=== PATIENT | female | born 1950 | race Caucasian/White ===

== ENCOUNTER → 2021-02-01 00:58 | Outpatient (CLI) | payer BC, SELFPAY ==
[2021-02-01 21:02] LABS: SARS-CoV-2 RNA PCR Negative
== END ==
PROVIDERS: PCP Internal Medicine; Visit Provider Obstetrics & Gynecology Gynecology
DX: Z01.812 Encounter for preprocedural laboratory examination (principal); Z20.822 Contact with and (suspected) exposure to COVID-19
CPT/HCPCS: C9803; U0003; U0005

== ENCOUNTER 2021-02-04 00:32 | Day surgery (SDC) | payer BC, SELFPAY ==
[2021-01-04 15:33] VITALS: BMI 26.0
[2021-02-04] VITALS (9 sets, daily range): BP systolic 109–165; BP diastolic 51–99; PULSE 38–57; RESP 12–18; TEMP 36.1; O2SAT 94–100
--- NOTE | 2021-02-04 07:39 | WPDHPUPDATE1 ---
History and Physical Update Update Date/Time: 02/04/21 07:39 History and Physical has been reviewed, including an updated exam of the patient. There are NO changes in the patient's condition. Risks, benefits, and alternatives have been discussed and questions answered. Patient agrees to proceed with procedure.
--- NOTE | 2021-02-04 07:40 | PM.HPGS ---
History of Present Illness History of Present Illness Consent: Risks, benefits, and alternatives have been discussed and questions answered. Patient agrees to proceed with procedure. Chief complaint: post menopausal bleeding Narrative: Jania Davis is a 70 year old female with postmenopausal bleeding. Pelvic ultrasound was performed and noted to have thickened lining. Recommended to proceed with hysteroscopy. Risks of infection, bleeding, and perforation are reviewed. Possible pathology is discussed. Patient's questions are answered and she voices understanding. She agrees to proceed.Medical clearance obtained from her transplant doctor. 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 Social History Social History Smoking status: Never smoker Second hand tobacco smoke exposure: No Alcohol intake: never Substance use: never Substance use type: does not use Living arrangements: alone Spiritual care concerns: No Meds Home Medications and Allergies Home Medications Medication Instructions Recorded Confirmed Type acyclovir 200 mg QAM 01/04/21 01/21/21 History calcitriol 0.25 mcg 3XW 01/04/21 01/21/21 History ergocalciferol (vitamin D2) See Rx Instructions .ROUTE .COMPLEX 01/04/21 01/21/21 History ferrous sulfate [iron] 325 mg PO DAILY 01/04/21 01/21/21 History levothyroxine 75 mcg QAM 01/04/21 01/21/21 History loratadine 10 mg PRN PRN 01/04/21 01/21/21 History mycophenolate mofetil 250 mg BID 01/04/21 01/21/21 History rosuvastatin 10 mg HS 01/04/21 01/21/21 History sodium bicarbonate 650 mg QAM 01/04/21 01/21/21 History sulfamethoxazole-trimethoprim See Rx Instructions .ROUTE .COMPLEX 01/04/21 01/21/21 History tacrolimus See Rx Instructions .ROUTE .COMPLEX 01/04/21 01/21/21 History Allergies Allergy/AdvReac Type Severity Reaction Status Date / Time No Known Allergies Allergy Unverified 01/21/21 15:23 Exam Const: General: comfortable and no acute distress : External Female Exam: normal external appearance Speculum Exam - Vagina: normal appearance of the vagina and vagina atrophic Speculum Exam - Cervix: Other cervical findings present (cervix at introitus) Bimanual exam- vagina & uterus: uterine size normal and other (uterine prolapse) Bimanual Exam- Adnexa, other: normal adnexae and no tenderness Assessment and Plan Assessment and plan (1) Post-menopausal bleeding: Code(s): N95.0 - Postmenopausal bleeding Status: Acute Assessment and Plan: plan to proceed with hysteroscopy with D&C
--- NOTE | 2021-02-04 07:45 | WPDANESEPPF ---
Anes - Initial Pre Proc Eval Procedure: Operation Date: 02/04/21 10:15 Proposed Procedures p Hysteroscopy, Dilation and Curettage - Aga Sánchez MD Date/Time: 02/04/21 07:45 Surgeon: Aga Sánchez MD Pre Op Diagnosis: post menopausal bleeding Patient Data Age: 70 Gender: F Height: 1.56 m Weight: 63.63 kg Allergies Allergy/AdvReac Type Severity Reaction Status Date / Time No Known Allergies Allergy Unverified 02/04/21 08:48 Home Medications Medication Instructions Recorded Confirmed Type acyclovir 200 mg QAM 01/04/21 02/04/21 History calcitriol 0.25 mcg 3XW 01/04/21 02/04/21 History ergocalciferol (vitamin D2) See Rx Instructions .ROUTE .COMPLEX 01/04/21 02/04/21 History ferrous sulfate [iron] 325 mg PO DAILY 01/04/21 02/04/21 History levothyroxine 75 mcg QAM 01/04/21 02/04/21 History loratadine 10 mg PRN PRN 01/04/21 02/04/21 History mycophenolate mofetil 250 mg BID 01/04/21 02/04/21 History rosuvastatin 10 mg HS 01/04/21 02/04/21 History sodium bicarbonate 650 mg QAM 01/04/21 02/04/21 History sulfamethoxazole-trimethoprim See Rx Instructions .ROUTE .COMPLEX 01/04/21 02/04/21 History tacrolimus See Rx Instructions .ROUTE .COMPLEX 01/04/21 02/04/21 History Patient hx anesthesia problems: none Family hx anesthesia problems: none [facility] Past Medical History Medical History (Updated 02/04/21 @ 09:03 by Smooth Naidu DO) Breast cancer 1999 RT, Chemo and L mastectomy Diabetes type 2, controlled ESRF (end stage renal failure) secondary to antirejection meds planning transplant Heart transplant recipient 2010 Hypothyroidism PONV (postoperative nausea and vomiting) Surgical History Surgical History (Updated 02/04/21 @ 09:03 by Smooth Naidu DO) History of mastectomy S/P implantation of automatic cardioverter/defibrillator (AICD) Heart damage after chemo placed initially 1999 Social History Social History Smoking status: Never smoker Second hand tobacco smoke exposure: No Alcohol intake: never Substance use: never Substance use type: does not use Living arrangements: alone Spiritual care concerns: No Anes - Eval Final PreProcedure Day of Procedure 02/04/21 07:45 Patient weight: overweight Heart: regular rate and rhythm Lungs: clear to auscultation and normal air movement Airway: Mallampati scale class II Neurological: alert and oriented Last oral intake: >/= 8 hours ASA classification: III Emergent: no Anesthetic plan: proceed Anesthesia type and monitoring: general GIVS and standard monitoring Informed Consent: The patient's anesthetic plan and its attendant risks and benefits were discussed with the patient/family/POA. Questions were solicited and answers provided to the satisfaction of the patient/family/POA.
[2021-02-04] MEDS: LACTATED RINGERS 1,000 ML 30 ML IV CONT ×2 (08:35→12:15)
[2021-02-04] MEDS: ACETAMINOPHEN 500 MG TABLET 1000 MG PO (08:39)
[2021-02-04 08:54] LABS: INR 0.9; Prothrombin Time 13.1 Seconds (11.1-14.7)
[2021-02-04 08:55] LABS: Partial Thromboplastin Time 24.9 SECONDS (22.3-36.8)
--- NOTE | 2021-02-04 10:45 | PM.PROC ---
Procedure Note - Detailed Date of procedure: 02/04/21 Pre-op diagnosis: post menopausal bleeding Post-op diagnosis: same Procedure performed: D and C hysteroscopy; excision of cervical lesion Description of procedure: The patient was taken to the operating room and placed under anesthesia in the dorsal lithotomy position. She was prepped and draped in the usual sterile fashion. Cervix is at the introitus the bivalve speculum is placed for better angles. The cervix was grasped on the anterior lip with a tenaculum and injected with 1% lidocaine. The uterus is sounded to 9cm. The cervix is serially dilated with Hegar. The diagnostic hysteroscope is placed and with no abnormalities noted it is removed. The medium sharp curette is used to sharply curette the endometrium until a good uterine cry was noted in all areas. Minimal material is obtained consistent with the atrophic appearance of the endometrium. The cervix has an anterior lip lesion approximately 2x2cm in width and height as well as about 2cm depth. There is the visible plane the normal cervical tissue and the lesion. The plane is dissected using Duran scissors until the apex of the lesion is reached then it is excised. The Bovie cautery is used to obtain hemostasis and the defect is closed using 0 Vicryl in a running locked fashion. Monsel's is applied. Good hemostasis is noted. All instruments are removed and the patient is awakened from anesthesia and taken to recovery in stable condition. Sponge, needle, and instrument counts are correct per the OR staff. Anesthesia: MAC and local Surgeon: Aga Sánchez MD Estimated blood loss (mL): 5 Drains: No Packing: No Pathology: yes (endometrial curettings; cervical lesion) Complications: No immediate complications Condition: stable Disposition: PACU Findings: complete uterine prolapse with 3rd degree cystocele atrophic appearing endometrium 2x2x2 cm cervical lesion anterior cervix
[2021-02-04 10:59] LABS: Glucose Point of Care 115 (65-105)
[2021-02-04] MEDS: fentaNYL CITRATE INJ (*CRX) 100 MCG/2 ML VIAL 25 MCG IV PUSH (11:22)
[2021-02-04] MEDS: ONDANSETRON INJ 4 MG/2 ML VIAL IV PUSH (11:32)
[2021-02-04] MEDS: diphenhydrAMINE HCl INJ 50 MG/ML VIAL 12.5 MG IV PUSH (12:34)
== END 2021-02-04 15:26 | disposition home or self-care (01) ==
PROVIDERS: Anesthesiology; PCP Internal Medicine; Visit Provider Obstetrics & Gynecology Gynecology
PROC: 0U5B8ZZ Destruction of Endometrium, Via Natural or Artificial Opening Endoscopic (ICD-10-PCS; CPT 58563; principal; 2021-02-04 10:15)
DX: N95.0 Postmenopausal bleeding (principal); N72 Inflammatory disease of cervix uteri; N85.8 Other specified noninflammatory disorders of uterus; E11.22 Type 2 diabetes mellitus with diabetic chronic kidney disease; N18.6 End stage renal disease; E03.9 Hypothyroidism, unspecified; Z94.1 Heart transplant status; Z85.3 Personal history of malignant neoplasm of breast; Z92.21 Personal history of antineoplastic chemotherapy; Z90.12 Acquired absence of left breast and nipple; Z95.810 Presence of automatic (implantable) cardiac defibrillator
CPT/HCPCS: 58558; 57500; 36415; 82948; 85610; 85730; 88305; A9270; J1100; J1200; J2405; J2704; J3010; J7030; J7120